=== PATIENT | male | born 1975 | race African-American/Black ===

== ENCOUNTER 2021-10-05 23:11 | Inpatient (IN) | payer SELFPAY ==
[~2021-10-05] VITALS: Ht 188 cm; Wt 90.7 kg
[2021-10-05] MEDS ORDERED: METHYLPREDNISOLONE SOD SUCC 125 MG/2 ML VIAL IV STA (23:16)
[2021-10-05] MEDS ORDERED: IPRATROPIUM BROMIDE (0.02%) 0.5MG/2.5ML NEB HHN STA (23:16)
[2021-10-05] MEDS ORDERED: ALBUTEROL (0.083%) 2.5MG/3ML NEB HHN STA (23:16)
[2021-10-05 23:33] LABS: BASOPHILS % 0.4 % (0.0-2.0); EOSINOPHILS % 2.7 % (0.0-5.0); LYMPHOCYTES % 7.2 % (20.0-50.0); MEAN CORPUSCULAR HEMOGLOBIN 26.4 pg (28.0-32.0); MEAN CORPUSCULAR VOLUME 82.8 fL (80.0-94.0); MEAN PLATELET VOLUME 8.5 fl (7.4-10.4); NEUTROPHILS % 85.7 % (40.0-76.0); PLATELET 283 x1000/uL (130-400); RED BLOOD CELL COUNT 5.67 mill/uL (4.7-6.1); RED CELL DISTRIBUTION WIDTH 14.9 % (11.6-14.6)
[2021-10-05 23:41] LABS: CHLORIDE 107 mEq/L (98-107)
[2021-10-05 23:54] LABS: ETHANOL BLOOD < 10 mg/dL
[2021-10-06] MEDS ORDERED: MAGNESIUM 2 G PREMIX 50 ML IV ONE (00:30)
[2021-10-06 01:58] LABS: BG BASE EXCESS -2.4 mmol/L (-2.0-2.0); BG CARBOXYHEMOGLOBIN 0.3 % (0.5-1.5); BG DEOXYHEMOGLOBIN 2.7 % (0.0-5.0); BG FRACTION INSPIRED OXYGEN 32; BG HCO3 ACT 23.8 mmol/L (22.0-26.0); BG METHEMOGLOBIN 0.2 % (0.0-1.5); BG OXYGEN SATURATION 97.3 % (92.0-98.5); BG OXYHEMOGLOBIN 96.8 % (94.0-97.0); BG PCO2 46.3 mmHg (35.0-45.0); BG PH 7.329 (7.350-7.450); BG PO2 100.5 mmHg (75.0-100.0); BG TOTAL HEMOGLOBIN 14.1 g/dL (12.0-18.0); BG VENT MODE NASAL CANNULA
[2021-10-06 02:28] LABS: CLARITY URINE CLEAR (CLEAR); COLOR URINE YELLOW (YELLOW); KETONES URINE TRACE (NEGATIVE); LEUKOCYTE ESTERASE URINE NEGATIVE (NEGATIVE); NITRITE URINE NEGATIVE (NEGATIVE); OCCULT BLOOD URINE TRACE (NEGATIVE); PH URINE 5.5 (4.5-8.0); PROTEIN URINE 1+ (NEGATIVE); SPECIFIC GRAVITY URINE 1.028 (1.005-1.030); UROBILINOGEN URINE 0.2 E.U./dL (0.2-1.0)
[2021-10-06 02:41] LABS: *BENZODIAZEPINES SCREEN URINE NEGATIVE (NEGATIVE); *COCAINE SCREEN URINE PRESUMTIVE POSITIVE (NEGATIVE); CANNABINOID URINE SCREEN NEGATIVE (NEGATIVE); METHADONE URINE SCREEN NEGATIVE (NEGATIVE); OPIATES URINE SCREEN NEGATIVE (NEGATIVE); PHENCYCLIDINE URINE SCREEN NEGATIVE (NEGATIVE)
[2021-10-06 02:42] LABS: *AMPHETAMINES SCREEN URINE NEGATIVE (NEGATIVE); *BARBITURATES SCREEN URINE NEGATIVE (NEGATIVE)
[2021-10-06] MEDS: IPRATROPIUM/ALBUTEROL 0.5-3(2.5)MG/3ML NEB HHN SCH ×2 (06:40→13:15)
[2021-10-06] MEDS: METHYLPREDNISOLONE SOD SUCC 125 MG/2 ML VIAL IV SCH ×2 (13:25→17:49)
[2021-10-06] MEDS ORDERED: CLARITI (15:56)
[2021-10-06 16:00] VITALS: BP 127/73
[2021-10-06 16:06] VITALS: BP 127/73
[2021-10-06 20:00] VITALS: BP 126/79
[2021-10-07] VITALS: BP 133/74
[2021-10-07] MEDS: METHYLPREDNISOLONE SOD SUCC 125 MG/2 ML VIAL IV SCH ×2 (00:18→05:15)
[2021-10-07 04:00] VITALS: BP 126/79
[2021-10-07] MEDS: IPRATROPIUM/ALBUTEROL 0.5-3(2.5)MG/3ML NEB HHN SCH ×2 (06:40→08:05)
[2021-10-07 07:31] LABS: HEMATOCRIT. 41.1 % (42.0-52.0); HEMOGLOBIN. 13.2 g/dL (14.0-18.0); MEAN CORPUSCULAR HEMOGLOBIN 26.6 pg (28.0-32.0); MEAN CORPUSCULAR VOLUME 82.9 fL (80.0-94.0); MEAN PLATELET VOLUME 9.2 fl (7.4-10.4); PLATELET 249 x1000/uL (130-400); RED BLOOD CELL COUNT 4.96 mill/uL (4.7-6.1); RED CELL DISTRIBUTION WIDTH 14.8 % (11.6-14.6)
[2021-10-07 07:58] LABS: CHLORIDE 106 mEq/L (98-107)
[2021-10-07 08:00] VITALS: BP 135/90
[2021-10-07 08:09] LABS: LDL CHOLESTEROL 93 mg/dL (5-100)
[2021-10-07 08:11] LABS: HDL CHOLESTEROL 68 mg/dL (40-59)
[2021-10-07] MEDS ORDERED: MED4 MT (11:12)
[2021-10-07] MEDS ORDERED: ALBU4TAB6 PO (11:15)
[2021-10-07 11:16] VITALS: BP 135/90
[2021-10-07] MEDS ORDERED: FLUT1DIS3 INH (11:25)
[2021-10-07 12:00] VITALS: BP 125/80
[2021-10-07 13:44] LABS: PLATELET ESTIMATE NORMAL
[2021-10-07] MEDS ORDERED: METHYLPREDNISOLONE SOD SUCC 40 MG/ML VIAL IV SCH (14:00)
== END 2021-10-07 14:05 | disposition home or self-care (01) | DRG 816 ==
LOC: ER 23:11 → MICUSO 10-06 12:09 → 6EST 10-06 14:42
PROVIDERS: ADMIT Family Medicine; ATTEND Family Medicine
DX: T40.5X1A Poisoning by cocaine, accidental (unintentional), initial encounter (principal); J96.01 Acute respiratory failure with hypoxia; J45.901 Unspecified asthma with (acute) exacerbation; J68.0 Bronchitis and pneumonitis due to chemicals, gases, fumes and vapors; R73.9 Hyperglycemia, unspecified; F14.90 Cocaine use, unspecified, uncomplicated; T38.0X5A Adverse effect of glucocorticoids and synthetic analogues, initial encounter; D72.829 Elevated white blood cell count, unspecified; Y92.89 Other specified places as the place of occurrence of the external cause
CPT/HCPCS: 36415; 36600; 71045; 80053; 80061; 80305; 80320; 81003; 82375; 82805; 83880; 84484; 85025; 93005; 94640; 99291; J2930; J3475; G0480